=== PATIENT | female | born 1950 | race African-American/Black ===

== ENCOUNTER 2017-07-25 06:57 | Emergency (ER) | payer MEDICARE, MEDICAID ==
[~2017-07-25] VITALS: Ht 157.5 cm; Wt 59.0 kg
[~2017-07-25 06:57] MED LIST: ALBU6.7H2 INH; AMLO10TA80 PO; CLON0.1T14 PO; FERR-63 PO; HYDR-1348 PO; Isosorb Dinit/Hydralazine Hcl PO; LOSA25TA3 PO; OMEP20TA80 PO
[2017-07-25 09:21] LABS: BASOPHILS % 1.1 % (0.0-2.0); EOSINOPHILS % 3.4 % (0.0-5.0); HEMATOCRIT. 32.3 % (36.0-48.0); HEMOGLOBIN. 10.4 g/dL (12.0-16.0); LYMPHOCYTES % 17.6 % (20.0-50.0); MEAN CORPUSCULAR HEMOGLOBIN 28.4 pg (28.0-32.0); MEAN CORPUSCULAR VOLUME 87.7 fL (81.0-99.0); MEAN PLATELET VOLUME 8.5 fl (7.4-10.4); MONOCYTES % 6.2 % (2.0-8.0); NEUTROPHILS % 71.7 % (40.0-76.0); PLATELET 193 x1000/uL (130-400); RED BLOOD CELL COUNT 3.68 mill/uL (4.2-5.4); RED CELL DISTRIBUTION WIDTH 15.2 % (11.6-14.6)
[2017-07-25 09:29] LABS: INR 1.1; PROTHROMBIN TIME 11.6 sec (9.4-11.6)
[2017-07-25 09:38] LABS: CARBON DIOXIDE 30 mEq/L (21-32); CHLORIDE 108 mEq/L (98-107)
[2017-07-25 10:16] LABS: CLARITY URINE CLEAR (CLEAR); COLOR URINE YELLOW (YELLOW); GLUCOSE URINE NEGATIVE (NEGATIVE); KETONES URINE NEGATIVE (NEGATIVE); LEUKOCYTE ESTERASE URINE NEGATIVE (NEGATIVE); NITRITE URINE NEGATIVE (NEGATIVE); OCCULT BLOOD URINE NEGATIVE (NEGATIVE); PROTEIN URINE 2+ (NEGATIVE); SPECIFIC GRAVITY URINE 1.013 (1.005-1.030)
[2017-07-25 11:21] VITALS: BP 165/89
== END 2017-07-25 11:24 | disposition home or self-care (01) ==
LOC: ER 08:55
DX: L03.116 Cellulitis of left lower limb (principal); F17.290 Nicotine dependence, other tobacco product, uncomplicated; I50.9 Heart failure, unspecified; I11.0 Hypertensive heart disease with heart failure; E78.00 Pure hypercholesterolemia, unspecified; Z90.710 Acquired absence of both cervix and uterus; Z88.6 Allergy status to analgesic agent
CPT/HCPCS: 36415; 71010; 80053; 81001; 83690; 85025; 85610; 93970; 99285; 99406

== ENCOUNTER 2017-08-07 06:26 | Inpatient (IN) | payer MEDICARE, MEDICAID ==
[~2017-08-07] VITALS: Ht 160 cm; Wt 56.2 kg
[2017-08-07] VITALS (27 sets, daily range): BP systolic 91–187; BP diastolic 64–111
[~2017-08-07 06:26] MED LIST changes: +OMEP20TA2 PO; -OMEP20TA80 PO
[2017-08-07] MEDS ORDERED: METHYLPREDNISOLONE SOD SUCC 125 MG/2 ML VIAL IV STA (06:47)
[2017-08-07] MEDS ORDERED: MAGNESIUM 2 G PREMIX 50 ML IV ONE (07:00)
[2017-08-07] MEDS ORDERED: FUROSEMIDE 40MG/4ML VIAL IVP ONE (07:00)
[2017-08-07] MEDS ORDERED: ALBUTEROL (0.5%) 2.5MG/0.5ML NEB HHN ONE (07:03)
[2017-08-07] MEDS ORDERED: IPRATROPIUM BROMIDE (0.02%) 0.5MG/2.5ML NEB ONE (07:04)
[2017-08-07] MEDS ORDERED: IPRATROPIUM BROMIDE (0.02%) 0.5MG/2.5ML NEB HHN STA (07:10)
[2017-08-07] MEDS ORDERED: ALBUTEROL (0.083%) 2.5MG/3ML NEB HHN STA (07:10)
[2017-08-07 07:17] LABS: BASOPHILS % 0.7 % (0.0-2.0); EOSINOPHILS % 1.9 % (0.0-5.0); HEMATOCRIT. 36.3 % (36.0-48.0); HEMOGLOBIN. 11.6 g/dL (12.0-16.0); LYMPHOCYTES % 15.2 % (20.0-50.0); MEAN CORPUSCULAR HEMOGLOBIN 28.4 pg (28.0-32.0); MEAN CORPUSCULAR VOLUME 89.3 fL (81.0-99.0); MEAN PLATELET VOLUME 8.9 fl (7.4-10.4); MONOCYTES % 4.6 % (2.0-8.0); NEUTROPHILS % 77.6 % (40.0-76.0); PLATELET 241 x1000/uL (130-400); RED BLOOD CELL COUNT 4.07 mill/uL (4.2-5.4); RED CELL DISTRIBUTION WIDTH 15.7 % (11.6-14.6)
[2017-08-07 07:30] LABS: INR 1.1; PARTIAL THROMBOPLASTIN TIME 21.5 sec (23.4-31.0); PROTHROMBIN TIME 11.1 sec (9.4-11.6)
[2017-08-07 07:34] LABS: CARBON DIOXIDE 25 mEq/L (21-32); CHLORIDE 107 mEq/L (98-107); ETHANOL BLOOD < 10 mg/dL; TROPONIN I 0.04 ng/mL (0.00-0.04)
[2017-08-07] MEDS ORDERED: ETOMIDATE 2MG/ML 10ML VIAL IV ONE ×2 (08:00→12:48)
[2017-08-07] MEDS ORDERED: PROPOFOL 10MG/ML 100ML 100 ML IV ONE (08:00)
[2017-08-07] MEDS ORDERED: SUCCINYLCHOLINE CHLORIDE 200MG/10ML VIAL IV ONE ×2 (08:00→12:48)
[2017-08-07] MEDS ORDERED: LEVOFLOXACIN 500MG PREMIX 100 ML IV ONE (08:00)
[2017-08-07] MEDS ORDERED: VECURONIUM BROMIDE 10 MG/VIAL IV ONE ×2 (08:30→12:48)
[2017-08-07 08:35] LABS: BG BASE EXCESS -5.1 mmol/L (-2.0-2.0); BG CARBOXYHEMOGLOBIN 4.9 % (0.5-1.5); BG DEOXYHEMOGLOBIN 1.2 % (0.0-5.0); BG FRACTION INSPIRED OXYGEN 100; BG HCO3 ACT 23.6 mmol/L (22.0-26.0); BG METHEMOGLOBIN 0.3 % (0.0-1.5); BG OXYGEN SATURATION 98.7 % (92.0-98.5); BG OXYHEMOGLOBIN 93.6 % (94.0-97.0); BG PCO2 61.1 mmHg (35.0-45.0); BG PH 7.204 (7.350-7.450); BG PO2 202.8 mmHg (75.0-100.0); BG SAMPLE SITE LEFT BRACHIAL; BG TIDAL VOLUME(mL) 500 mL; BG TOTAL HEMOGLOBIN 12.2 g/dL (12.0-18.0); BG VENT MODE VENT - A/C; BG VENT RATE 14 set
[2017-08-07 08:45] LABS: *AMPHETAMINES SCREEN URINE NEGATIVE (NEGATIVE); *BARBITURATES SCREEN URINE NEGATIVE (NEGATIVE); *BENZODIAZEPINES SCREEN URINE NEGATIVE (NEGATIVE); *COCAINE SCREEN URINE PRESUMTIVE POSITIVE (NEGATIVE); CANNABINOID URINE SCREEN NEGATIVE (NEGATIVE); METHADONE URINE SCREEN NEGATIVE (NEGATIVE); OPIATES URINE SCREEN NEGATIVE (NEGATIVE); PHENCYCLIDINE URINE SCREEN NEGATIVE (NEGATIVE)
[2017-08-07] MEDS ORDERED: VANCOMYCIN 1 G PREMIX 200 ML IV SCH (08:45)
[2017-08-07] MEDS ORDERED: HYDRALAZINE 20MG/ML VIAL IV ONE (09:15)
[2017-08-07] MEDS ORDERED: PROPOFOL 10MG/ML 100ML 100 ML IV SCH (09:15)
[2017-08-07] MEDS ORDERED: LORAZEPAM 2MG/ML CPJ IV ONE (09:15)
[2017-08-07] MEDS ORDERED: NICARDIPINE 50 MG in SODIUM CHLORIDE 0.9% 230 ML IV PRN (09:45)
[2017-08-07] MEDS ORDERED: IPRATROPIUM/ALBUTEROL 0.5-3(2.5)MG/3ML NEB HHN PRN (10:45)
[2017-08-07] MEDS ORDERED: ONDANSETRON HCL 4MG/2ML VIAL IV PRN (11:30)
[2017-08-07] MEDS: IPRATROPIUM/ALBUTEROL 0.5-3(2.5)MG/3ML NEB HHN SCH ×3 (11:59→20:14)
[2017-08-07] MEDS ORDERED: STERILE WATER FOR INJECTION 10ML VIAL ONE (12:48)
[2017-08-07] MEDS: PROPOFOL 10MG/ML 100ML 100 ML IV PRN ×3 (13:01→22:17)
[2017-08-07] MEDS: PANTOPRAZOLE SODIUM 40 MG/VIAL IV SCH (13:06)
[2017-08-07] MEDS: ENOXAPARIN 30MG/0.3ML SYR SUBCUT SCH (13:07)
[2017-08-07 13:11] LABS: BG BASE EXCESS -2.1 mmol/L (-2.0-2.0); BG CARBOXYHEMOGLOBIN 0.5 % (0.5-1.5); BG DEOXYHEMOGLOBIN 0.7 % (0.0-5.0); BG FRACTION INSPIRED OXYGEN 80; BG HCO3 ACT 23.2 mmol/L (22.0-26.0); BG METHEMOGLOBIN 0.5 % (0.0-1.5); BG OXYGEN SATURATION 99.3 % (92.0-98.5); BG OXYHEMOGLOBIN 98.3 % (94.0-97.0); BG PCO2 41.6 mmHg (35.0-45.0); BG PH 7.364 (7.350-7.450); BG PO2 271.7 mmHg (75.0-100.0); BG SAMPLE SITE RIGHT BRACHIAL; BG TIDAL VOLUME(mL) 450 mL; BG TOTAL HEMOGLOBIN 10.9 g/dL (12.0-18.0); BG VENT MODE VENT - A/C; BG VENT RATE 16 set
[2017-08-07] MEDS: BUDESONIDE 0.5MG/2ML NEB HHN SCH ×2 (16:07→20:14)
[2017-08-07] MEDS ORDERED: PANTOPRAZOLE SODIUM 40 MG/VIAL IV SCH (16:45)
[2017-08-07] MEDS: FUROSEMIDE 40MG/4ML VIAL IVP SCH (16:52)
[2017-08-07] MEDS: LORAZEPAM 2MG/ML CPJ IV PRN ×2 (17:08→20:53)
[2017-08-08] VITALS (53 sets, daily range): BP systolic 82–189; BP diastolic 61–132
[2017-08-08] MEDS: IPRATROPIUM/ALBUTEROL 0.5-3(2.5)MG/3ML NEB HHN SCH ×6 (00:27→20:04)
[2017-08-08] MEDS: PROPOFOL 10MG/ML 100ML 100 ML IV PRN ×4 (03:26→22:12)
[2017-08-08] MEDS: LORAZEPAM 2MG/ML CPJ IV PRN (03:49)
[2017-08-08] MEDS: HYDRALAZINE 20MG/ML VIAL IV PRN (05:39)
[2017-08-08 08:09] LABS: BG BASE EXCESS -0.4 mmol/L (-2.0-2.0); BG CARBOXYHEMOGLOBIN 0.3 % (0.5-1.5); BG DEOXYHEMOGLOBIN 0.9 % (0.0-5.0); BG FRACTION INSPIRED OXYGEN 60; BG HCO3 ACT 24.1 mmol/L (22.0-26.0); BG METHEMOGLOBIN 0.4 % (0.0-1.5); BG OXYGEN SATURATION 99.1 % (92.0-98.5); BG OXYHEMOGLOBIN 98.4 % (94.0-97.0); BG PH 7.409 (7.350-7.450); BG PO2 248.4 mmHg (75.0-100.0); BG SAMPLE SITE RIGHT BRACHIAL; BG TIDAL VOLUME(mL) 450 mL; BG TOTAL HEMOGLOBIN 9.9 g/dL (12.0-18.0); BG VENT MODE VENT - A/C; BG VENT RATE 16 set
[2017-08-08] MEDS: PANTOPRAZOLE SODIUM 40 MG/VIAL IV SCH (08:41)
[2017-08-08] MEDS: FUROSEMIDE 40MG/4ML VIAL IVP SCH ×2 (08:41→17:08)
[2017-08-08] MEDS: ENOXAPARIN 30MG/0.3ML SYR SUBCUT SCH (08:44)
[2017-08-08] MEDS: BUDESONIDE 0.5MG/2ML NEB HHN SCH ×2 (08:50→20:05)
[2017-08-08] MEDS ORDERED: FENTANYL CITRATE/PF 50MCG/ML 2ML VIAL IV PRN (09:30)
[2017-08-08] MEDS: HYDROMORPHONE HCL/PF 2MG/ML CPJ IV PRN (10:41)
[2017-08-08] MEDS ORDERED: LIDOCAINE HCL 1% 20ML VIAL (Pyxis) INJ ONE (11:12)
[2017-08-08] MEDS ORDERED: NOREPINEPHRINE 4 MG in DEXT 5% WATER 246 ML IV PRN (14:15)
[2017-08-08 14:25] LABS: T4 FREE 0.76 ng/dL (0.76-1.46)
[2017-08-08 14:40] LABS: BASOPHILS % 0.3 % (0.0-2.0); EOSINOPHILS % 0.4 % (0.0-5.0); HEMATOCRIT. 31.1 % (36.0-48.0); LYMPHOCYTES % 13.2 % (20.0-50.0); MEAN CORPUSCULAR HEMOGLOBIN 28.5 pg (28.0-32.0); MEAN CORPUSCULAR VOLUME 88.7 fL (81.0-99.0); MEAN PLATELET VOLUME 8.3 fl (7.4-10.4); MONOCYTES % 7.1 % (2.0-8.0); PLATELET 147 x1000/uL (130-400); RED BLOOD CELL COUNT 3.51 mill/uL (4.2-5.4)
[2017-08-08] MEDS ORDERED: ACETAMINOPHEN 650MG/20.3ML UDC PO PRN (16:30)
[2017-08-09] VITALS (48 sets, daily range): BP systolic 73–206; BP diastolic 50–118
[2017-08-09] MEDS: IPRATROPIUM/ALBUTEROL 0.5-3(2.5)MG/3ML NEB HHN SCH ×6 (00:25→20:21)
[2017-08-09] MEDS: HYDROMORPHONE HCL/PF 2MG/ML CPJ IV PRN (01:53)
[2017-08-09] MEDS: PROPOFOL 10MG/ML 100ML 100 ML IV PRN ×4 (04:08→21:39)
[2017-08-09 05:31] LABS: BASOPHILS % 0.3 % (0.0-2.0); HEMATOCRIT. 33.8 % (36.0-48.0); HEMOGLOBIN. 10.9 g/dL (12.0-16.0); LYMPHOCYTES % 16.4 % (20.0-50.0); MEAN CORPUSCULAR HEMOGLOBIN 28.2 pg (28.0-32.0); MEAN CORPUSCULAR VOLUME 87.7 fL (81.0-99.0); MEAN PLATELET VOLUME 8.6 fl (7.4-10.4); MONOCYTES % 5.5 % (2.0-8.0); NEUTROPHILS % 76.8 % (40.0-76.0); PLATELET 163 x1000/uL (130-400); RED BLOOD CELL COUNT 3.86 mill/uL (4.2-5.4); RED CELL DISTRIBUTION WIDTH 15.5 % (11.6-14.6)
[2017-08-09] MEDS: BUDESONIDE 0.5MG/2ML NEB HHN SCH ×2 (08:23→20:21)
[2017-08-09] MEDS: FUROSEMIDE 40MG/4ML VIAL IVP SCH ×2 (09:13→16:58)
[2017-08-09] MEDS: PANTOPRAZOLE SODIUM 40 MG/VIAL IV SCH (09:13)
[2017-08-09] MEDS: ENOXAPARIN 30MG/0.3ML SYR SUBCUT SCH (09:13)
[2017-08-09] MEDS ORDERED: LEVOFLOXACIN 250MG PREMIX 50 ML IV SCH (12:00)
[2017-08-09] MEDS: LEVOFLOXACIN 500MG PREMIX 100 ML IV SCH (12:18)
[2017-08-10] VITALS (46 sets, daily range): BP systolic 90–192; BP diastolic 65–114
[2017-08-10] MEDS: PROPOFOL 10MG/ML 100ML 100 ML IV PRN ×3 (02:29→18:00)
[2017-08-10 05:39] LABS: BASOPHILS % 0.2 % (0.0-2.0); EOSINOPHILS % 1.2 % (0.0-5.0); HEMATOCRIT. 31.3 % (36.0-48.0); HEMOGLOBIN. 10.4 g/dL (12.0-16.0); LYMPHOCYTES % 11.9 % (20.0-50.0); MEAN CORPUSCULAR HEMOGLOBIN 28.6 pg (28.0-32.0); MEAN CORPUSCULAR VOLUME 86.4 fL (81.0-99.0); MEAN PLATELET VOLUME 8.8 fl (7.4-10.4); NEUTROPHILS % 79.7 % (40.0-76.0); PLATELET 165 x1000/uL (130-400); RED BLOOD CELL COUNT 3.63 mill/uL (4.2-5.4); RED CELL DISTRIBUTION WIDTH 15.8 % (11.6-14.6)
[2017-08-10] MEDS: IPRATROPIUM/ALBUTEROL 0.5-3(2.5)MG/3ML NEB HHN SCH ×4 (07:38→20:06)
[2017-08-10] MEDS: BUDESONIDE 0.5MG/2ML NEB HHN SCH (07:38)
[2017-08-10] MEDS: PANTOPRAZOLE SODIUM 40 MG/VIAL IV SCH (08:23)
[2017-08-10] MEDS: ENOXAPARIN 30MG/0.3ML SYR SUBCUT SCH (08:23)
[2017-08-10] MEDS ORDERED: FUROSEMIDE 40MG/4ML VIAL IVP SCH (09:00)
[2017-08-10] MEDS: LORAZEPAM 2MG/ML CPJ IV PRN (10:11)
[2017-08-10 10:16] LABS: BG BASE EXCESS 1.8 mmol/L (-2.0-2.0); BG DEOXYHEMOGLOBIN 4.3 % (0.0-5.0); BG FRACTION INSPIRED OXYGEN 35; BG HCO3 ACT 26.4 mmol/L (22.0-26.0); BG METHEMOGLOBIN 0.3 % (0.0-1.5); BG OXYGEN SATURATION 95.7 % (92.0-98.5); BG OXYHEMOGLOBIN 95.4 % (94.0-97.0); BG PCO2 41.1 mmHg (35.0-45.0); BG PH 7.425 (7.350-7.450); BG PO2 85.1 mmHg (75.0-100.0); BG SAMPLE SITE RIGHT RADIAL; BG TIDAL VOLUME(mL) 450 mL; BG TOTAL HEMOGLOBIN 11.7 g/dL (12.0-18.0); BG VENT MODE VENT - A/C; BG VENT RATE 16 set
[2017-08-10] MEDS: HYDRALAZINE 20MG/ML VIAL IV PRN (10:53)
[2017-08-10] MEDS ORDERED: KCL 20MEQ/100ML PREMIX 100 ML IV SCH (13:00)
[2017-08-11] VITALS (26 sets, daily range): BP systolic 80–197; BP diastolic 52–104
[2017-08-11] MEDS: PROPOFOL 10MG/ML 100ML 100 ML IV PRN (02:58)
[2017-08-11] MEDS: IPRATROPIUM/ALBUTEROL 0.5-3(2.5)MG/3ML NEB HHN SCH ×7 (04:01→23:45)
[2017-08-11] MEDS: HYDROMORPHONE HCL/PF 2MG/ML CPJ IV PRN ×3 (05:27→18:07)
[2017-08-11] MEDS: ENOXAPARIN 30MG/0.3ML SYR SUBCUT SCH (09:01)
[2017-08-11] MEDS: PANTOPRAZOLE SODIUM 40 MG/VIAL IV SCH (09:01)
[2017-08-11 09:58] LABS: BASOPHILS % 0.3 % (0.0-2.0); HEMATOCRIT. 32.8 % (36.0-48.0); HEMOGLOBIN. 10.6 g/dL (12.0-16.0); LYMPHOCYTES % 11.8 % (20.0-50.0); MEAN PLATELET VOLUME 9.1 fl (7.4-10.4); MONOCYTES % 6.7 % (2.0-8.0); NEUTROPHILS % 80.2 % (40.0-76.0); PLATELET 164 x1000/uL (130-400); RED BLOOD CELL COUNT 3.77 mill/uL (4.2-5.4); RED CELL DISTRIBUTION WIDTH 15.9 % (11.6-14.6)
[2017-08-11] MEDS ORDERED: POTASSIUM CHLORIDE INJ 40 MEQ in DEXT 5% WATER 250 ML IV NR (10:30)
[2017-08-11] MEDS: SODIUM CHLORIDE 0.45% 1,000 ML IV SCH (10:58)
[2017-08-11] MEDS: LEVOFLOXACIN 500MG PREMIX 100 ML IV SCH (11:03)
[2017-08-11 11:05] LABS: BG BASE EXCESS 2.3 mmol/L (-2.0-2.0); BG CARBOXYHEMOGLOBIN 0.2 % (0.5-1.5); BG DEOXYHEMOGLOBIN 3.7 % (0.0-5.0); BG HCO3 ACT 28.3 mmol/L (22.0-26.0); BG METHEMOGLOBIN 0.1 % (0.0-1.5); BG OXYGEN SATURATION 96.3 % (92.0-98.5); BG PCO2 50.4 mmHg (35.0-45.0); BG PH 7.367 (7.350-7.450); BG PO2 96.8 mmHg (75.0-100.0); BG SAMPLE SITE RIGHT RADIAL; BG TIDAL VOLUME(mL) 450 mL; BG TOTAL HEMOGLOBIN 11.5 g/dL (12.0-18.0); BG VENT MODE VENT - SIMV; BG VENT RATE 6 set
[2017-08-11] MEDS: CEFEPIME 1,000 MG in DEXTROSE 5% WATER 50 ML IV SCH (11:22)
[2017-08-11] MEDS: LORAZEPAM 2MG/ML CPJ IV PRN ×2 (17:07→23:03)
[2017-08-11] MEDS: HYDRALAZINE 20MG/ML VIAL IV PRN (17:52)
[2017-08-12] VITALS (25 sets, daily range): BP systolic 131–190; BP diastolic 64–120
[2017-08-12] MEDS: HYDRALAZINE 20MG/ML VIAL IV PRN ×3 (00:17→17:49)
[2017-08-12] MEDS: IPRATROPIUM/ALBUTEROL 0.5-3(2.5)MG/3ML NEB HHN SCH ×5 (03:21→20:53)
[2017-08-12] MEDS: HYDROMORPHONE HCL/PF 2MG/ML CPJ IV PRN ×2 (04:26→11:12)
[2017-08-12] MEDS: PANTOPRAZOLE SODIUM 40 MG/VIAL IV SCH (07:53)
[2017-08-12] MEDS: SODIUM CHLORIDE 0.45% 1,000 ML IV SCH (07:53)
[2017-08-12] MEDS: ENOXAPARIN 30MG/0.3ML SYR SUBCUT SCH (07:54)
[2017-08-12 08:37] LABS: BASOPHILS % 0.5 % (0.0-2.0); CARBON DIOXIDE 26 mEq/L (21-32); CHLORIDE 108 mEq/L (98-107); HEMATOCRIT. 33.3 % (36.0-48.0); HEMOGLOBIN. 10.7 g/dL (12.0-16.0); LYMPHOCYTES % 10.5 % (20.0-50.0); MEAN CORPUSCULAR HEMOGLOBIN 28.1 pg (28.0-32.0); MEAN CORPUSCULAR VOLUME 87.6 fL (81.0-99.0); MONOCYTES % 7.3 % (2.0-8.0); NEUTROPHILS % 80.7 % (40.0-76.0); PLATELET 168 x1000/uL (130-400); RED BLOOD CELL COUNT 3.81 mill/uL (4.2-5.4); RED CELL DISTRIBUTION WIDTH 15.6 % (11.6-14.6)
[2017-08-12] MEDS: CEFEPIME 1,000 MG in DEXTROSE 5% WATER 50 ML IV SCH (11:24)
[2017-08-12] MEDS ORDERED: POTASSIUM CHLORIDE 20MEQ TABLET SR PO NR (12:00)
[2017-08-12] MEDS: AMLODIPINE 5MG TABLET PO SCH (21:23)
[2017-08-13] VITALS (10 sets, daily range): BP systolic 113–193; BP diastolic 61–112
[2017-08-13] MEDS: SODIUM CHLORIDE 0.45% 1,000 ML IV SCH (03:00)
[2017-08-13] MEDS: IPRATROPIUM/ALBUTEROL 0.5-3(2.5)MG/3ML NEB HHN SCH ×6 (04:53→20:53)
[2017-08-13 07:25] LABS: BASOPHILS % 0.5 % (0.0-2.0); EOSINOPHILS % 2.3 % (0.0-5.0); HEMATOCRIT. 31.3 % (36.0-48.0); HEMOGLOBIN. 10.1 g/dL (12.0-16.0); LYMPHOCYTES % 14.5 % (20.0-50.0); MEAN CORPUSCULAR HEMOGLOBIN 28.3 pg (28.0-32.0); MEAN CORPUSCULAR VOLUME 87.9 fL (81.0-99.0); MEAN PLATELET VOLUME 8.9 fl (7.4-10.4); NEUTROPHILS % 72.7 % (40.0-76.0); PLATELET 155 x1000/uL (130-400); RED BLOOD CELL COUNT 3.56 mill/uL (4.2-5.4); RED CELL DISTRIBUTION WIDTH 15.4 % (11.6-14.6)
[2017-08-13 07:30] LABS: CHLORIDE 109 mEq/L (98-107)
[2017-08-13 08:00] LABS: CARBON DIOXIDE 23 mEq/L (21-32)
[2017-08-13] MEDS: PANTOPRAZOLE SODIUM 40 MG/VIAL IV SCH (09:57)
[2017-08-13] MEDS: ENOXAPARIN 30MG/0.3ML SYR SUBCUT SCH (09:58)
[2017-08-13] MEDS: AMLODIPINE 5MG TABLET PO SCH ×2 (09:58→20:40)
[2017-08-13] MEDS: HYDROMORPHONE HCL/PF 2MG/ML CPJ IV PRN (10:30)
[2017-08-13] MEDS: CEFEPIME 1,000 MG in DEXTROSE 5% WATER 50 ML IV SCH (12:27)
[2017-08-13] MEDS ORDERED: POTASSIUM CHLORIDE 20MEQ TABLET SR PO SCH (13:30)
[2017-08-13] MEDS: HYDROCORTISONE 1% CREAM 30GM TOP SCH ×2 (17:57→20:41)
[2017-08-13] MEDS: NICOTINE 21MG PATCH TD SCH (17:58)
[2017-08-13] MEDS: HYDROMORPHONE HCL/PF 2MG/ML CPJ IM PRN (20:44)
[2017-08-13] MEDS: HYDRALAZINE 20MG/ML VIAL IV PRN (22:29)
[2017-08-14] VITALS (7 sets, daily range): BP systolic 128–160; BP diastolic 74–99
[2017-08-14] MEDS: IPRATROPIUM/ALBUTEROL 0.5-3(2.5)MG/3ML NEB HHN SCH ×7 (00:28→22:10)
[2017-08-14] MEDS: HYDROCORTISONE 1% CREAM 30GM TOP SCH ×3 (05:59→21:16)
[2017-08-14] MEDS: SODIUM CHLORIDE 0.45% 1,000 ML IV SCH (06:00)
[2017-08-14] MEDS: HYDROMORPHONE HCL/PF 2MG/ML CPJ IM PRN (07:13)
[2017-08-14] MEDS: AMLODIPINE 5MG TABLET PO SCH ×2 (09:15→21:17)
[2017-08-14] MEDS: ENOXAPARIN 30MG/0.3ML SYR SUBCUT SCH (09:17)
[2017-08-14] MEDS: PANTOPRAZOLE SODIUM 40 MG/VIAL IV SCH (09:17)
[2017-08-14] MEDS: CEFEPIME 1,000 MG in DEXTROSE 5% WATER 50 ML IV SCH (12:22)
[2017-08-14] MEDS: NICOTINE 21MG PATCH TD SCH (18:58)
[2017-08-14] MEDS: HYDROCODONE/ACETAMINOPHEN 10/325MG TABLET PO PRN (21:25)
[2017-08-15] VITALS: BP 136/84
[2017-08-15] MEDS: IPRATROPIUM/ALBUTEROL 0.5-3(2.5)MG/3ML NEB HHN SCH ×7 (00:54→23:46)
[2017-08-15 04:00] VITALS: BP 155/96
[2017-08-15] MEDS: HYDROCORTISONE 1% CREAM 30GM TOP SCH ×3 (06:16→22:00)
[2017-08-15] MEDS: SODIUM CHLORIDE 0.45% 1,000 ML IV SCH (06:16)
[2017-08-15] MEDS: HYDROCODONE/ACETAMINOPHEN 10/325MG TABLET PO PRN ×3 (06:17→18:07)
[2017-08-15 06:20] LABS: BASOPHILS % 0.9 % (0.0-2.0); EOSINOPHILS % 2.7 % (0.0-5.0); HEMATOCRIT. 29.3 % (36.0-48.0); HEMOGLOBIN. 9.5 g/dL (12.0-16.0); LYMPHOCYTES % 26.3 % (20.0-50.0); MEAN CORPUSCULAR HEMOGLOBIN 28.3 pg (28.0-32.0); MEAN CORPUSCULAR VOLUME 87.1 fL (81.0-99.0); MEAN PLATELET VOLUME 8.3 fl (7.4-10.4); MONOCYTES % 10.1 % (2.0-8.0); PLATELET 188 x1000/uL (130-400); RED BLOOD CELL COUNT 3.36 mill/uL (4.2-5.4); RED CELL DISTRIBUTION WIDTH 14.9 % (11.6-14.6)
[2017-08-15 07:08] LABS: PHOSPHORUS 4.3 mg/dL (2.5-4.9)
[2017-08-15 08:00] VITALS: BP 158/96
[2017-08-15] MEDS: PANTOPRAZOLE SODIUM 40 MG/VIAL IV SCH (08:50)
[2017-08-15] MEDS: ENOXAPARIN 30MG/0.3ML SYR SUBCUT SCH (08:51)
[2017-08-15] MEDS: AMLODIPINE 5MG TABLET PO SCH ×2 (08:51→21:00)
[2017-08-15] MEDS: NICOTINE 21MG PATCH TD SCH (08:51)
[2017-08-15] MEDS: CEFEPIME 1,000 MG in DEXTROSE 5% WATER 50 ML IV SCH (11:15)
[2017-08-15 12:00] VITALS: BP 113/74
[2017-08-15 16:00] VITALS: BP 151/86
[2017-08-15] MEDS: HYDRALAZINE 20MG/ML VIAL IV PRN (17:31)
[2017-08-15 20:00] VITALS: BP 136/84
[2017-08-16] VITALS: BP 149/75
[2017-08-16] MEDS: SODIUM CHLORIDE 0.45% 1,000 ML IV SCH ×2 (00:11→11:57)
[2017-08-16] MEDS: HYDROCODONE/ACETAMINOPHEN 10/325MG TABLET PO PRN ×3 (00:13→11:57)
[2017-08-16 04:00] VITALS: BP 152/83
[2017-08-16] MEDS: IPRATROPIUM/ALBUTEROL 0.5-3(2.5)MG/3ML NEB HHN SCH ×3 (04:07→11:21)
[2017-08-16] MEDS: HYDROCORTISONE 1% CREAM 30GM TOP SCH (05:56)
[2017-08-16 06:44] LABS: EOSINOPHILS % 3.1 % (0.0-5.0); HEMATOCRIT. 27.9 % (36.0-48.0); LYMPHOCYTES % 26.3 % (20.0-50.0); MEAN CORPUSCULAR HEMOGLOBIN 28.2 pg (28.0-32.0); MEAN CORPUSCULAR VOLUME 87.4 fL (81.0-99.0); MEAN PLATELET VOLUME 8.5 fl (7.4-10.4); NEUTROPHILS % 59.6 % (40.0-76.0); PLATELET 198 x1000/uL (130-400); RED BLOOD CELL COUNT 3.19 mill/uL (4.2-5.4); RED CELL DISTRIBUTION WIDTH 14.9 % (11.6-14.6)
[2017-08-16 08:00] VITALS: BP 143/86
[2017-08-16] MEDS: NICOTINE 21MG PATCH TD SCH (09:07)
[2017-08-16] MEDS: ENOXAPARIN 30MG/0.3ML SYR SUBCUT SCH (09:08)
[2017-08-16] MEDS: PANTOPRAZOLE SODIUM 40 MG/VIAL IV SCH (09:08)
[2017-08-16] MEDS: AMLODIPINE 5MG TABLET PO SCH (09:08)
[2017-08-16] MEDS ORDERED: AMLO5TAB88 PO (10:29)
[2017-08-16] MEDS: CEFEPIME 1,000 MG in DEXTROSE 5% WATER 50 ML IV SCH (11:56)
[2017-08-16 12:00] VITALS: BP 149/87
[2017-08-16 13:41] VITALS: BP 152/83
== END 2017-08-16 14:05 | disposition home or self-care (01) | DRG 720 ==
LOC: ER 06:26 → CVICU 07:08 → EDBEDREQ 07:13 → EDBEDREQSVC 07:13 → CANRESERV 07:26 → ENRESERV 07:26 → EDBEDREQSVC 07:48 → EDBEDREQ 07:49 → ENRESERV 08:38 → 5EST 08-12 22:14
PROVIDERS: ADMIT Internal Medicine Nephrology; ATTEND Internal Medicine Nephrology
PROC: 5A1955Z Respiratory Ventilation, Greater than 96 Consecutive Hours (ICD-10-PCS; principal; 2017-08-07)
PROC: 0BH17EZ Insertion of Endotracheal Airway into Trachea, Via Natural or Artificial Opening (ICD-10-PCS; 2017-08-07)
PROC: 02HV33Z Insertion of Infusion Device into Superior Vena Cava, Percutaneous Approach (ICD-10-PCS; 2017-08-08)
PROC: B548ZZA Ultrasonography of Superior Vena Cava, Guidance (ICD-10-PCS; 2017-08-08)
DX: A41.9 Sepsis, unspecified organism (principal); G92 Toxic encephalopathy; I50.23 Acute on chronic systolic (congestive) heart failure; J18.9 Pneumonia, unspecified organism; N17.9 Acute kidney failure, unspecified; J96.01 Acute respiratory failure with hypoxia; J96.02 Acute respiratory failure with hypercapnia; J44.0 Chronic obstructive pulmonary disease with (acute) lower respiratory infection; I13.0 Hypertensive heart and chronic kidney disease with heart failure and stage 1 through stage 4 chronic kidney disease, or unspecified chronic kidney disease; I42.9 Cardiomyopathy, unspecified; N18.3 Chronic kidney disease, stage 3 (moderate); J44.1 Chronic obstructive pulmonary disease with (acute) exacerbation; E07.81 Sick-euthyroid syndrome; D63.1 Anemia in chronic kidney disease; F14.10 Cocaine abuse, uncomplicated; Z91.19 Patient's noncompliance with other medical treatment and regimen; Z90.710 Acquired absence of both cervix and uterus; F17.210 Nicotine dependence, cigarettes, uncomplicated; Z88.6 Allergy status to analgesic agent; Z79.899 Other long term (current) drug therapy; F19.10 Other psychoactive substance abuse, uncomplicated; L29.9 Pruritus, unspecified
CPT/HCPCS: 31500; 36415; 36569; 36600; 51702; 71010; 76937; 80048; 80053; 80305; 82375; 82805; 82962; 83605; 83690; 83735; 83880; 84100; 84439; 84443; 84478; 84484; 85025; 85610; 85730; 87040; 87070; 92610; 93005; 93970; 94002; 94003; 94640; 94660; 94664; 96365; 96367; 96375; 97110; 97116; 97163; 97530; 99291; A4216; A6261; C1725; C9113; G0482; J0330; J0360; J0692; J1170; J1650; J1940; J1956; J2060; J2704; J2930; J3370; J3475; J3480; J3490; J7040; J7050; J7060; J7611; J7620; J7626